=== PATIENT | male | born 1985 | race Caucasian/White ===

== ENCOUNTER 2020-01-10 19:49 | Emergency (ER) | payer MEDICAID, SELFPAY ==
--- NOTE | ~2020-01-10 | XR_ITS ---
EXAMINATION: XR chest 1V portable DATE: 01/10/2020 20:28 INDICATION: Overdose TECHNIQUE: frontal view of the chest was obtained. COMPARISON: None FINDINGS: Small calcified nodule at the left apex consistent with old granulomatous disease. The lungs are othe rwise clear with no focal airspace opacities, pulmonary edema, pleural effusion or pneumothorax. The cardiomediastinal silhouette is normal. Old posterior right seventh rib fracture deformity. Bones and soft tissues are otherwise unremarkable. IMPRESSION: 1. No acute cardiopulmonary disease. Reviewed, dictated and finalized at location A. DING INSPECTOR
[2020-01-10 19:55] VITALS: PULSE 149; RESP 12; RESP 18; O2SAT 95
[2020-01-10] MEDS: NALOXONE HCL INJ 2 MG/2 ML AMP (20:14)
--- NOTE | 2020-01-10 20:16 | ED.OVERDOSE ---
HPI - Overdose General Chief Complaint: Overdose Stated Complaint: fentanyl Time Seen by Provider: 01/10/20 20:13 Source: patient, RN notes reviewed and other (pt's friend) Mode of arrival: ambulatory Limitations: no limitations History of Present Illness HPI Narrative: Pt is a 34 y/o male with a Hx of Fentanyl use, who presents to the ED with c/o Fentanyl overdose. He notes that he took the medication around 19:00 this evening. Pt's friend states that she later found the pt stumbling around, and notes that he eventually stopped breathing, which prompted her to bring the pt to the ED. He currently reports anxiety, but denies any headache, CP, ABD pain, or other symptoms. Pt states that he hasn't consumed any EtOH this evening. Patient denies any homicidal or suicidal ideation. Patient was not trying to end his life. complaint: accidental overdose Onset (ago): hour(s) (1) Time: 19:00 Timing confirmed by: other (pt's friend) Intent: unknown How Overdose Was Discovered: family/friend present at time Context: Accidental Overdose: uncertain what happened Associated symptoms: other (anxiety) Treatments Prior to Arrival: none Related Data Allergies Allergy/AdvReac Type Severity Reaction Status Date / Time No Known Drug Allergies Allergy Verified 05/31/13 18:25 Review of Systems Review of Systems: Narrative: CARDIOVASCULAR: Denies chest pain, palpitations, or edema. RESPIRATORY: Denies cough or dyspnea. GASTROINTESTINAL: Denies abdominal pain, nausea, vomiting, or diarrhea. MUSCULOSKELETAL: Denies back pain, joint pain, or myalgia. NEUROLOGIC: Denies headache, numbness, or weakness. PSYCHIATRIC: Reports anxiety. Denies depression. All systems reviewed & are unremarkable except as noted in HPI and below PMFSH Past Medical History Medical History Gastroenteritis Sinusitis Surgical History Surgical History History of surgery on arm Right Social History Social History Smoking packs per day: 0.5 Smoking cigarettes per day: 10.0 Smoking status: Current every day smoker Alcohol intake: current Substance use type: opiates Gender identity (if verbalized by the patient): Male Exam Narrative: Exam Narrative: GENERAL: Well-appearing, well-nourished, and in no acute distress. HEAD: Normocephalic, atraumatic. EYES: PERRLA and EOMI. ENT: Nares clear, no rhinorrhea or epistaxis. Mucous membranes dry. NECK: Supple. CHEST: Clear to auscultation. No respiratory distress. HEART: Tachycardic and regular rhythm. No murmur heard. Normal peripheral pulses. ABDOMEN: Soft, nontender, nondistended, normal active bowel sounds. EXTREMITIES: Normal range of motion. No edema. SKIN: Warm, dry, no rash. NEURO: No focal deficits. Alert and oriented. Course Course Emergency Course: Patient presented for evaluation following an unintentional drug overdose. At the time of initial assessment, patient is alert and oriented to person, place and to time. No focal neurological deficits. No complaint of pain. Patient is tachycardic, but reports extreme anxiety. EKG with nonspecific findings, no ischemic type findings. Laboratory work is reassuring. Patient is hemoconcentrated, has very mild acute kidney injury. Patient recommended to give IV fluids, but his IV blew, patient would not allow replacement. Did explain to patient that he was dehydrated, however at the time of reassessment vital signs had normalized and he was well-appearing without complaints. He was able to tolerate oral intake. Patient had no decrease in mentation, apnea or recurrent symptoms or a period of observation in the emergency department. No signs of aspiration on chest x-ray. Patient was advised to hydrate, he was discharged home given resources for drug abuse, unintentional overdose. Vital Signs Vital signs: Vital Signs P
[2020-01-10] MEDS: ONDANSETRON INJ 4 MG/2 ML VIAL IV PUSH (20:19)
[2020-01-10] MEDS: SODIUM CHLORIDE 0.9% IV 1,000 ML 999 ML IV CONT (20:19)
[2020-01-10 20:25] LABS: Basophils Absolute Auto 0.1 K/mm3 (0.0-0.1); Basophils Percent Auto 0.7 % (0.2-1.2); Eosinophils Absolute Auto 0.1 K/mm3 (0-0.3); Eosinophils Percent Auto 0.6 % (0-4.4); Hematocrit 38.5 % (42.0-52.0); Hemoglobin 12.2 g/dL (14.0-18.0); Immature Granulocyte Percent A 1.5 % (0-0.5); Lymphocytes Absolute Auto 2.98 K/mm3 (0.9-3.2); Lymphocytes Percent Auto 15.2 % (18.3-44.2); Mean Corpuscular HGB Conc 31.7 g/dl (32-36); Mean Corpuscular Volume 91.4 fl (80-100); Monocytes Absolute Auto 1.1 K/mm3 (0.1-0.6); Monocytes Percent Auto 5.8 % (2.6-8.5); Neutrophils Percent Auto 76.2 % (45.5-73.1); Platelet Count Result 709 k/mm3 (150-375); Red Blood Count 4.21 M/mm3 (4.6-6.20); Red Cell Distribution Width 13.2 % (11.5-14.5); White Blood Count 19.6 K/mm3 (4.5-10.0)
[2020-01-10 20:35] LABS: INR 1.1; Prothrombin Time 14.1 Seconds (11.1-14.7)
[2020-01-10 20:36] LABS: Blood Urea Nitrogen 18 mg/dL (9-20); Calcium 8.8 mg/dL (8.4-10.2); Carbon Dioxide 23 mmol/L (22-30); Chloride 104 mmol/L (98-107); Creatine Kinase 58 U/L (55-170); Estimated Glomerular Filt Rate 50; Glucose 174 mg/dL (75-110); Potassium 3.9 mmol/L (3.4-5.0); Sodium 145 mmol/L (137-145)
[2020-01-10 20:38] LABS: Acetaminophen < 10 ug/mL (10-30); Ethanol < 10 mg/dL (<10); Salicylate < 1.0 mg/dL (2-20)
[2020-01-10 20:50] LABS: Partial Thromboplastin Time 23.8 SECONDS (22.3-36.8)
--- NOTE | 2020-01-10 20:50 | PC.NURSE ---
Called lab to add on ethanol, they stated it was duplicate order. RN notified.
--- NOTE | 2020-01-10 20:58 | PC.NURSE ---
Pts IV infiltrated. When talking to pt about starting new IV pt stated he did not want another IV and did not want anymore fluids. I informed Dr. Marie of this.
[2020-01-10 21:20] LABS: Add Urine Microscopic? YES; Appearance Urine Clear (Clear); Bacteria Urine Trace /hpf; Bilirubin Urine Negative (Negative); Blood Urine Negative (Negative); Color Urine Yellow (Yellow); Glucose Urine UA 1+ mg/dL (Negative); Ketones Urine Negative (Negative); Leukocyte Esterase Ur Negative LEU/UL (Negative); Mucus Urine Rare /lpf; Nitrate Urine Negative (Negative); Protein Urine 2+ mg/dL (Negative); RBC Urine 0-2 /hpf (0-2); Specific Grav Ur 1.021 (1.001-1.035); Squamous Epithelial Cell Urine Rare /hpf (Few); Urobilinogen Urine Negative mg/dL (<2.0); WBC Urine 0-3 /hpf
[2020-01-10 21:38] LABS: Amphetamine Screen Urine Negative (Negative); Barbiturate Screen Urine Negative (Negative); Benzodiazepines Screen Urine Negative (Negative); Cannabinoid Screen Urine Negative (Negative); Cocaine Screen Urine Negative (Negative); Methadone Screen Urine Negative (Negative); Opiate Screen Urine Negative (Negative); Phencyclidine Screen Urine Negative (Negative)
[2020-01-10 21:56] VITALS: BP 115/86; PULSE 91; O2SAT 100
[2020-01-10 22:56] VITALS: BP 121/82; PULSE 101; RESP 18; O2SAT 100
--- NOTE | 2020-01-10 22:59 | ECG_ITS ---
Measurements Intervals [place] Rate: 143 P: 53 [place]: 127 QRS: 46 QRSD: 97 T: 39 QT: 297 QTc: 459 Interpretive Statements SINUS TACHYCARDIA DELAYED PRECORDIAL R/S TRANSITION MINIMAL Q WAVES- INFERIOR LEADS NONSPECIFIC ST & T-WAVE ABNORMALITY- INF/LAT LEADS ABNORMAL ECG Electronically Signed On 01-11-2020 7:04:37 BLENDER by Eedr Byers D.O.
== END 2020-01-10 22:58 | disposition home or self-care (01) ==
PROVIDERS: Emergency Provider Emergency Medicine
DX: T40.4X1A Poisoning by other synthetic narcotics, accidental (unintentional), initial encounter (principal); E86.0 Dehydration; N17.9 Acute kidney failure, unspecified; F17.210 Nicotine dependence, cigarettes, uncomplicated
CPT/HCPCS: 36415; 71045; 80048; 80307; 81001; 82550; 85025; 85610; 85730; 93005; 96361; 96374; 96375; 99284; J2310; J2405; J7030

== ENCOUNTER 2021-07-09 21:08 | Emergency (ER) | payer OTHER, SELFPAY ==
[2021-07-09 21:17] VITALS: BP 169/75; PULSE 83; RESP 18; TEMP 36.6; O2SAT 98
[2021-07-09 22:14] VITALS: BP 146/97; PULSE 87; RESP 16; O2SAT 100
--- NOTE | 2021-07-09 23:30 | PC.NURSE ---
Assumed care of pt at this time. Pt resting on stretcher, on cell phone.
--- NOTE | 2021-07-10 00:46 | ED.EYEPROB ---
HPI - Eye Problem General Chief complaint: Eye Problems Stated complaint: right eye - fb Time Seen by Provider: 07/10/21 00:17 Source: patient Mode of arrival: ambulatory Limitations: no limitations History of Present Illness HPI Narrative: Patient is a 35-year-old male complaining of foreign body and his right eye happened at work approximately 2 days ago. 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 Patient states that he might of scratched his right eye earlier today and now is red. Patient denies any changes in vision. Related Data Allergies Allergy/AdvReac Type Severity Reaction Status Date / Time No Known Allergies Allergy Verified 07/10/21 00:14 Review of Systems Review of Systems: All systems reviewed & are unremarkable except as noted in HPI and below PMFSH Past Medical History Medical History (Updated 07/10/21 @ 01:44 by Hossein Snider MD) Gastroenteritis Sinusitis Surgical History Surgical History History of surgery on arm Right Social History Social History Smoking packs per day: 0.5 Smoking cigarettes per day: 10.0 Smoking status: Current every day smoker Alcohol intake: current Alcohol use details: Occasional Substance use type: opiates Gender identity (if verbalized by the patient): Male Exam Const: General: no acute distress and alert Orientation/consciousness: patient oriented x3 HENMT: Head: normal to inspection General nose exam: Normal nares present and no nasal discharge noted Face and sinus: normal facial exam Mouth: Yes moist mucous membranes Eyes: Other: Small black dot at 11:00 position of his right eye Course Vital Signs Vital signs: Vital Signs Temperature 36.6 C 07/09/21 21:17 Pulse Rate 83 07/09/21 21:17 Respiratory Rate 18 07/09/21 21:17 Blood Pressure 169/75 H 07/09/21 21:17 Pulse Oximetry 98 07/09/21 21:17 Temperature 36.6 C 07/09/21 21:17 Pulse Rate 87 07/09/21 22:14 Respiratory Rate 16 07/09/21 22:14 Blood Pressure 146/97 H 07/09/21 22:14 Pulse Oximetry 100 07/09/21 22:14 MDM - Eye Problem MDM Narrative Medical decision making narrative: Advised the patient we do not have ophthalmology on-call and he can either follow-up with his primary care physician to be referred to ophthalmology or at [facility] in [facility]. Also advised that patient can call [facility] or [place] [facility] for an appointment. Differential Diagnosis Differential diagnosis: Likely corneal abrasion, conjunctivitis and other (Foreign body) Discharge Plan Discharge Clinical Impression: Foreign body in cornea, right eye, initial encounter Corneal abrasion Qualifiers: Encounter type: initial encounter Laterality: right Qualified Code(s): S05.01XA - Injury of conjunctiva and corneal abrasion without foreign body, right eye, initial encounter Patient Disposition: Home, Self-Care Condition: Stable Instructions: Corneal Abrasion (ED), Eye Foreign Body (ED) Additional Instructions: Follow-up with [facility] Prescriptions: New erythromycin 5 mg/gram (0.5 %) ointment 0.5 inch EACH EYE QID Qty: 50 RF: 0 No Action ondansetron HCl [Zofran] 4 mg tablet 4 mg PO Q6H PRN (Reason: nausea and vomiting) Qty: 10 RF: 0 Follow-up/Referrals: PHYSICIAN,GUEST RELATION OFFICER [Primary Care Provider] - Time of Disposition: 01:47
[2021-07-10] MEDS: TETANUS,DIPHTHERIA,AC PERTUSSIS ADULT (0.5 ML) BOOSTRIX IM (01:22)
[2021-07-10] MEDS: TETRACAINE HCL 0.5% OPHTH SOLN 4 ML BTL 1 DROP EACH EYE (01:23)
[2021-07-10] MEDS: ERYTHROMYCIN OPHTH OINTMENT 1 GM TUBE 1 APPLIC EACH EYE (01:53)
[2021-07-10 02:00] VITALS: BP 145/101; PULSE 69; RESP 16; O2SAT 100
== END 2021-07-10 02:03 | disposition home or self-care (01) ==
PROVIDERS: Emergency Provider Emergency Medicine
DX: S05.01XA Injury of conjunctiva and corneal abrasion without foreign body, right eye, initial encounter (principal); Z23 Encounter for immunization; W22.8XXA Striking against or struck by other objects, initial encounter
CPT/HCPCS: 90471; 90715; 99283; A9270